=== PATIENT | female | born 1950 | race Caucasian/White ===

== ENCOUNTER 2022-04-27 06:27 | Day surgery (SDC) | payer MEDICARE, OTHER, SELFPAY ==
[2022-04-27 06:48] VITALS: BP 146/76; PULSE 85; RESP 16; TEMP 36.4; O2SAT 100
[2022-04-27] MEDS: Tropicam./Phenyleph. (1/2.5%) 5 ML BTL OD ×3 (06:53→07:02)
--- NOTE | 2022-04-27 07:22 | W.ANESPRE ---
General Info Date of Service Date Performed: 04/27/22 Height: 5 ft 3 in Weight: 50.3 kg Body Mass Index (BMI): 19.6 Surgical Procedure: Operation Date: 04/27/22 07:40 Proposed Procedure Side Surgeon p Cataract Extraction with IOL Implant Right Chema Coleman MD Pre-Op Diagnosis Post-Op Diagnosis CATARACT RIGHT EYE Meds Allergies and Home Medications Allergies Allergy/AdvReac Type Severity Reaction Status Date / Time No Known Allergies Allergy Verified 04/27/22 06:45 Home Medication Medication Instructions Recorded cholecalciferol (vitamin D3) 125 2,000 unit PO DAILY 04/24/22 mcg (5,000 unit) tablet (Vitamin D3) cholestyramine (with sugar) 4 gram 4 pwd PO DIRECTED 04/24/22 oral powder lorazepam 0.5 mg tablet 0.5 mg PO DIRECTED 04/24/22 mecobalamin (vitamin B12) 1,000 1,000 mcg PO DAILY 04/24/22 mcg chewable tablet (B12 Active) multivitamin 1 tab PO DAILY 04/24/22 nicotine (polacrilex) 4 mg buccal 4 mg PO Q2H PRN 04/24/22 lozenge nicotine 7 mg/24 hr daily 7 mg transdermal DAILY 04/24/22 transdermal patch ustekinumab 90 mg/mL subcutaneous 90 mg subcut DIRECTED 04/24/22 syringe (Stelara) Current Visit Medications: Current Medications Generic Name Dose Route Start Last Admin Trade Name Freq PRN Reason Stop Dose Admin Acetaminophen 1,000 mg 04/27/22 06:00 Acetaminophen 500 Mg Tab PO Q4H PRN PRN Miscellaneous Medication 0 ml 04/27/22 06:00 04/27/22 07:02 Tropicam./Phenyleph. 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 Mixed anxiety and depressive disorder Osteoporosis Tobacco user Surgical History Surgical History (Updated 04/27/22 @ 06:45 by Jayy James) H/O colectomy with removal of terminal ileum Hx of cholecystectomy Hx of colonoscopy Hx of tonsillectomy S/P cystourethroscopy with dilation of urethral stricture with indwelling ureteral stent placement S/P laparoscopic surgery Tobacco Smoking/Tobacco Use Status: Current every day Alcohol Alcohol Intake: never Substance Use Substance use: Never Substance use type: does not use Vital Signs and Lab Results Vital Signs Most Recent Vital Signs in EMR: Most Recent Vital Signs Temp Pulse Resp BP Pulse Ox 36.4 C L 85 16 146/76 H 100 04/27/22 06:48 04/27/22 06:48 04/27/22 06:48 04/27/22 06:48 04/27/22 06:48 Lab Results Blood Type / Crossmatch: No Data to Display Complete Blood Count: No Data to Display Complete Metabolic Panel: No Data to Display Liver Function Panel: No Data to Display Coagulation Panel: No Data to Display Cardiac Panel: No Data to Display Arterial Blood Gas: No Data to Display Venous Blood Gas: No Data to Display Pancreas Panel: No Data to Display Thyroid Panel: No Data to Display Infectious Disease: No Data to Display Blood Cultures: No Data to Display Toxicology Panel: No Data to Display Anesthesia Assessment and Plan Anesthesia History Personal History: No History of Anesthesia Complications Family History: No Family History of Anesthesia Complications Exercise Tolerance Exercise Tolerance: Metabolic Equivalents>4 Pertinent Negatives Pertinent Negatives: No Symptoms of GERD Cardiac & Pulmonary Exam Cardiac Exam: Normal S1/S2 Heart Sounds Pulmonary Exam: Clear Bilateral Breath Sounds Implantable Cardiac Device Does patient have a Pacemaker or an ICD?: No Airway Exam Known Difficult Airway: No Mallampati Class: 2 Mouth Opening: Normal (> 3cm) Thyromental Distance: Greater than 3 cm Neck Range of Motion: Full ROM Neck Circumference: Normal Teeth Condition: Normal Dentition ASA Classification ASA Score: ASA 2 Emergency Case?: No NPO Status NPO Status: NPO Clears >2 hours, Solids >8 hours Anesthesia Plan Resuscitation Status: Full Code Anesthesia Technique: MAC Anesthesia Airway Planned: Natural Airway Monitors Used: Standard Monitors
[2022-04-27 07:24] VITALS: BMI 19.6
[2022-04-27] MEDS: Lidocaine 1% Pres-Free 5 ML VIAL (07:37)
[2022-04-27] MEDS: Balanced Salt Soln.-PLUS 500 ML BAG (07:39)
[2022-04-27] MEDS: Povidone-Iodine Ophth 30 ML BTL (07:39)
[2022-04-27] MEDS: Lidocaine 2% Jelly 6 ML SYR (07:39)
[2022-04-27] MEDS: Duovisc Viscoelastic System EACH 1 EACH (07:40)
[2022-04-27] MEDS: Tetracaine 0.5% 4 ML BTL OD (07:42)
[2022-04-27 08:00] VITALS: BP 120/72; PULSE 67; RESP 16; TEMP 37.1; O2SAT 99
--- NOTE | 2022-04-27 08:01 | W.PM.DSUDISC ---
Date of service: 04/27/22 Time of Service: 08:01 Discharge Plan Disposition Patient Disposition: Home Discharge Details Attending Provider: Chema Coleman Primary Care Provider: Nan Shepherd Home Meds and New Rx's Prescriptions: No Action multivitamin Tablet 1 tab PO DAILY lorazepam 0.5 mg Tablet 0.5 mg PO DIRECTED nicotine 7 mg/24 hr Patch 24 Hour 7 mg transdermal DAILY nicotine (polacrilex) 4 mg Lozenge 4 mg PO Q2H PRN cholestyramine (with sugar) 4 gram Powder 4 pwd PO DIRECTED Stelara 90 mg/mL Syringe 90 mg SUBCUT DIRECTED mecobalamin (vitamin B12) [B12 Active] 1,000 mcg Tablet,Chewable 1,000 mcg PO DAILY cholecalciferol (vitamin D3) [Vitamin D3] 125 mcg (5,000 unit) Tablet 2,000 unit PO DAILY Discharge Instructions Stand Alone Forms: Post-op Topical Cataract, Press Ganey (DSU) Discharge Orders Discharge Orders: Discharge Order (Routine); Ordered 04/27/22 Ordered By: Chema Coleman DS: Diagnosis Discharge Diagnosis (1) Nuclear sclerotic cataract of right eye: Status: Resolved
--- NOTE | 2022-04-27 08:02 | ROE_ITS ---
Date of service: 04/27/22 Time of Service: 08:02 Operative Note Operative Note DATE OF PROCEDURE: 04/27/22 PRE-OP DIAGNOSIS: Nuclear cataract, right eye POST-OP DIAGNOSIS: same PROCEDURE: Cataract extraction using phacoemulsification with intraocular lens implant, right eye SURGEON: Chema Coleman ANESTHESIA TYPE: Local By Surgeon and MAC Refer to Anesthesia Record ESTIMATED BLOOD LOSS: 0 PATHOLOGY: none sent COMPLICATIONS: None Patient was transported to: same day Patient's condition: stable Implants: Maikel Clareon [id number] Indications: Progressive decreased vision due to cataract, right eye Procedure Description: CATARACT SURGERY OPERATIVE REPORT PREOPERATIVE DIAGNOSIS: Nuclear cataract, right eye POSTOPERATIVE DIAGNOSIS: Same OPERATION: Cataract extraction using phacoemulsification with posterior chamber intraocular lens implant, right eye. IOL: IOL Ornamental Plasterer Helper/Model: Maikel Clareon [id number] IOL Power: + 21.5 diopters IOL Serial Number: [id number] Optic Diameter: 6.0mm Haptic/Overall Diameter: 13.0mm PHACO INFO: Maikel [employer] Vision System with OZil and Active Fluidics Cumulative Dispersed Energy (CDE): 17.0 seconds SURGEON: Chema Coleman MD, CARMELLA ANESTHESIA: Monitored Anesthesia Care (MAC), with local sub-tenon's anesthetic infiltration COMPLICATIONS: None SPECIMENS: None INDICATIONS FOR PROCEDURE: The patient is a 71-year-old lady with history of diminished visual acuity in her right eye secondary to the development of significant nuclear cataract. She is significantly symptomatic that she desires cataract surgery and attempt to improve and maximize her vision. The option of cataract surgery was offered to the patient and she wished to proceed. PROCEDURE: The correct surgical eye was identified and marked as the right eye and the pupil was dilated in the preoperative area using mydriatics and cycloplegics. The dilated pupil size was 7.0 mm. Oral sedation was administered in the form of an Imprimis MKO Melt (midazolam 3mg/ketamine 25mg/ondansetron 2mg). The patient was brought to the operating room where cardiopulmonary monitoring was instituted and surgical time-out was performed, confirming the correct operative eye and IOL power. Topical anesthesia was administered and ophthalmic povidone-iodine 5% was instilled into the conjunctival fornices. Lidocaine gel was applied to the cornea and the ceasar-ocular area was prepped with Betadine 10% solution and draped in the usual sterile fashion for intraocular surgery, including an aperture drape. A Tegaderm transparent film dressing was cut in half and used to cover the lashes and lid margins. Care was taken to sequester the lashes and lid margins under the Tegaderm dressing. A lid speculum was placed between the lids of the operative eye and the Feli-Michael operating microscope was maneuvered into position. Edith scissors were then used to make a conjunctival buttonhole approximately 6mm posterior to the limbus in the inferonasal quadrant. Blunt dissection was carried out to expose bare sclera, and a blunt-tipped sub-tenon?s anesthesia cannula was introduced and passed posteriorly along the globe where non- preserved plain lidocaine was injected into posterior sub-Tenon?s space. A sideport knife was used to make a paracentesis port inferiortemporally. Intraocular phenylephrine/lidocaine was injected into the anterior chamber. The anterior chamber was then filled with viscoelastic. A keratome knife was used to construct a two--plane near-clear corneal tunnel extending 2.0mm into clear cornea in the superiortemporal position.. A flap was raised on the anterior capsule and capsulorhexis forceps were used to complete a continuous curvilinear capsulorhexis of 5.5 mm. Balanced salt solution was then used to perform cortical cleaving hydrodissection and nuclear hydrodelineation until the lens could be freely rotated within the capsular bag. The lens nucleus was then disassembled and removed within the capsular bag and iris plane using phacoemulsification. Residual cortical material was removed using the I/A handpiece. The posterior capsule was carefully polished to remove as much residual lens epithelial cells as safely possible. The capsular bag was then inflated and the anterior chamber deepened with viscoelastic. The lens implant described above was inserted into the capsular bag using the Maikel Autonome Injector. A Kuglen hook was used to dial the IOL into position. Residual viscoelastic was then removed first from posterior to the IOL, then from the anterior chamber using the I/A handpiece. The lens implant was noted to center nicely within the capsular bag. The incisions were stromally hydrated, and the anterior chamber was reformed using BSS. Then 0.5cc of moxifloxacin 1.0mg/ml were injected into the capsular bag and anterior chamber. The incisions were checked with a Weck spear and found to be secure. Several drops of ophthalmic povidone-iodine 5% were then applied to the eye followed by two drops of Imprimis combination prednisolone/moxifloxacin/nepafenac solution. The drapes were removed and a clear plastic protective eye shield was placed over the eye. The patient was then returned to Same Day Surgery in stable condition.
--- NOTE | 2022-04-27 08:13 | W.ANESPOSTOP ---
Postoperative Evaluation Date, Time and Location Date Performed: 04/27/22 Time Performed: 08:00 Patient Location: Day Surgery Unit Vital Signs Most Recent Imported Vital Signs: Most Recent Vital Signs Temp Pulse Resp BP Pulse Ox 37.1 C 67 16 120/72 99 04/27/22 08:00 04/27/22 08:00 04/27/22 08:00 04/27/22 08:00 04/27/22 08:00 Pain Score Most Recent Pain Score: Most Recent Pain Score Pain Level 0 04/27/22 08:00 Assessment Mental Status: Awake (Alert & Oriented to Patient Baseline) Airway and Respiratory Function: Patent airway with normal (patient baseline) respiratory exam Cardiovascular Function: Hemodynamically Stable Hydration Status: Adequately Hydrated Nausea & Vomiting: No Nausea or Vomiting Pain: Pt. Denies Any Pain Peripheral Nerve Block: Patient did not receive a nerve block
[2022-04-27 08:25] VITALS: BP 123/75; PULSE 74; RESP 18; TEMP 37; O2SAT 100
== END 2022-04-27 08:29 | disposition home or self-care (01) ==
LOC: SUR 06:27
PROVIDERS: PCP Physician Assistant Medical; Visit Provider Ophthalmology
PROC: (CPT 66984; principal; 2022-04-27 07:30)
DX: H25.11 Age-related nuclear cataract, right eye (principal)
CPT/HCPCS: 66984; V2632

== ENCOUNTER 2022-05-04 09:29 | Day surgery (SDC) | payer MEDICARE, OTHER, SELFPAY ==
[2022-05-04 10:02] VITALS: BP 131/66; PULSE 74; RESP 16; TEMP 36.6; O2SAT 100
[2022-05-04] MEDS: Tropicam./Phenyleph. (1/2.5%) 5 ML BTL OS ×3 (10:14→10:23)
--- NOTE | 2022-05-04 11:05 | W.ANESPRE ---
General Info Date of Service Date Performed: 05/04/22 Height: 5 ft 3 in Weight: 111.6 kg Body Mass Index (BMI): 43.5 Surgical Procedure: Operation Date: 05/04/22 11:25 Proposed Procedure Side Surgeon p Cataract Extraction with IOL Implant Left Chema Coleman MD Meds Allergies and Home Medications Allergies Allergy/AdvReac Type Severity Reaction Status Date / Time No Known Allergies Allergy Verified 05/04/22 10:00 Home Medication Medication Instructions Recorded cholecalciferol (vitamin D3) 125 2,000 unit PO DAILY 04/24/22 mcg (5,000 unit) tablet (Vitamin D3) cholestyramine (with sugar) 4 gram 4 pwd PO DIRECTED 04/24/22 oral powder lorazepam 0.5 mg tablet 0.5 mg PO DIRECTED 04/24/22 mecobalamin (vitamin B12) 1,000 1,000 mcg PO DAILY 04/24/22 mcg chewable tablet (B12 Active) multivitamin 1 tab PO DAILY 04/24/22 nicotine (polacrilex) 4 mg buccal 4 mg PO Q2H PRN 04/24/22 lozenge nicotine 7 mg/24 hr daily 7 mg transdermal DAILY 04/24/22 transdermal patch ustekinumab 90 mg/mL subcutaneous 90 mg subcut DIRECTED 04/24/22 syringe (Stelara) Current Visit Medications: Current Medications Generic Name Dose Route Start Last Admin Trade Name Freq PRN Reason Stop Dose Admin Acetaminophen 1,000 mg 05/04/22 06:00 Acetaminophen 500 Mg Tab PO Q4H PRN PRN Miscellaneous Medication 0 ml 05/04/22 06:00 05/04/22 10:23 Tropicam./Phenyleph. (1/2.5%) 5 Ml Btl OS 1 drp DIRECTED [facility] Administration Miscellaneous Medication 0 ml 05/04/22 06:00 Prednisolone 1%, Moxifloxacin 0.5%, Nepafenac 0.1% 5ml Btl OS DIRECTED [facility] Tetracaine HCl 0 ml 05/04/22 06:00 Tetracaine 0.5% 4 Ml Btl OS DIRECTED [facility] PFSH Active Problems Active Problems: Problem Status Onset Code Nuclear sclerotic cataract of right eye H25.11 Medical History Medical History Abnormal weight loss Crohn's disease Crohn's disease involving terminal ileum Crohns disease of small intestine Epigastric abdominal pain Essential thrombocythemia Gastric ulcer HLD (hyperlipidemia) detention (current) use of systemic steroids Mixed anxiety and depressive disorder Osteoporosis Tobacco user Surgical History Surgical History H/O colectomy with removal of terminal ileum Hx of cholecystectomy Hx of colonoscopy Hx of tonsillectomy S/P cystourethroscopy with dilation of urethral stricture with indwelling ureteral stent placement S/P laparoscopic surgery Tobacco Smoking/Tobacco Use Status: Current every day Alcohol Alcohol Intake: never Substance Use Substance use: Never Substance use type: does not use Vital Signs and Lab Results Vital Signs Most Recent Vital Signs in EMR: Most Recent Vital Signs Temp Pulse Resp BP Pulse Ox 36.6 C 74 16 131/66 100 05/04/22 10:02 05/04/22 10:02 05/04/22 10:02 05/04/22 10:02 05/04/22 10:02 Lab Results Blood Type / Crossmatch: No Data to Display Complete Blood Count: No Data to Display Complete Metabolic Panel: No Data to Display Liver Function Panel: No Data to Display Coagulation Panel: No Data to Display Cardiac Panel: No Data to Display Arterial Blood Gas: No Data to Display Venous Blood Gas: No Data to Display Pancreas Panel: No Data to Display Thyroid Panel: No Data to Display Infectious Disease: No Data to Display Blood Cultures: No Data to Display Toxicology Panel: No Data to Display Anesthesia Assessment and Plan Anesthesia History Personal History: No History of Anesthesia Complications Family History: No Family History of Anesthesia Complications Exercise Tolerance Exercise Tolerance: Metabolic Equivalents>4 Pertinent Negatives Pertinent Negatives: No Symptoms of GERD, No Major Cardiovascular Symptoms or Complaints, No Major Pulmonary Symptoms or Complaints and No History of CVA/TIA Cardiac & Pulmonary Exam Cardiac Exam: Normal S1/S2 Heart Sounds Pulmonary Exam: Clear Bilateral Breath Sounds Implantable Cardiac Device Does patient have a Pacemaker or an ICD?: No Airway Exam Known Difficult Airway: No Mallampati Class: 2 Mouth Opening: Narrow (< 3cm) Thyromental Distance: Greater than 3 cm Neck Range of Motion: Full ROM Neck Circumference: Normal Teeth Condition: Normal Dentition ASA Classification ASA Score: ASA 2 Emergency Case?: No NPO Status NPO Status: NPO Clears >2 hours, Solids >8 hours Anesthesia Plan Resuscitation Status: Full Code Anesthesia Technique: MAC Anesthesia Airway Planned: Natural Airway Monitors Used: Standard Monitors
[2022-05-04 11:06] VITALS: BMI 43.5
[2022-05-04] MEDS: Balanced Salt Soln.-PLUS 500 ML BAG (11:42)
[2022-05-04] MEDS: Tetracaine 0.5% 4 ML BTL OS (11:42)
[2022-05-04] MEDS: Lidocaine 2% Jelly 6 ML SYR (11:43)
[2022-05-04] MEDS: Duovisc Viscoelastic System EACH 1 EACH (11:43)
[2022-05-04] MEDS: Povidone-Iodine Ophth 30 ML BTL (11:45)
[2022-05-04 12:01] VITALS: BP 139/65; PULSE 65; RESP 16; TEMP 36.7; O2SAT 100
--- NOTE | 2022-05-04 12:02 | W.PM.DSUDISC ---
Date of service: 05/04/22 Time of Service: 12:02 Discharge Plan Disposition Patient Disposition: Home Discharge Details Attending Provider: Chema Coleman Primary Care Provider: Nan Shepherd Home Meds and New Rx's Prescriptions: No Action multivitamin Tablet 1 tab PO DAILY lorazepam 0.5 mg Tablet 0.5 mg PO DIRECTED nicotine 7 mg/24 hr Patch 24 Hour 7 mg transdermal DAILY nicotine (polacrilex) 4 mg Lozenge 4 mg PO Q2H PRN cholestyramine (with sugar) 4 gram Powder 4 pwd PO DIRECTED Stelara 90 mg/mL Syringe 90 mg SUBCUT DIRECTED mecobalamin (vitamin B12) [B12 Active] 1,000 mcg Tablet,Chewable 1,000 mcg PO DAILY cholecalciferol (vitamin D3) [Vitamin D3] 125 mcg (5,000 unit) Tablet 2,000 unit PO DAILY Discharge Instructions Stand Alone Forms: Post-op Topical Cataract, Press Ganey (DSU) Discharge Orders Discharge Orders: Discharge Order (Routine); Ordered 05/04/22 Ordered By: Chema Coleman DS: Diagnosis Discharge Diagnosis (1) Nuclear sclerotic cataract of left eye: Status: Resolved
--- NOTE | 2022-05-04 12:03 | ROE_ITS ---
Date of service: 05/04/22 Time of Service: 12:03 Operative Note Operative Note DATE OF PROCEDURE: 05/04/22 PRE-OP DIAGNOSIS: Nuclear cataract, left eye POST-OP DIAGNOSIS: same PROCEDURE: Cataract extraction using phacoemulsification with intraocular lens implant, left eye SURGEON: Chema Coleman ANESTHESIA TYPE: Local By Surgeon and MAC Refer to Anesthesia Record PATHOLOGY: none sent COMPLICATIONS: None Patient was transported to: same day Patient's condition: stable Implants: Maikel Clareon [id number] Indications: Progressive decreased vision due to cataract, left eye Procedure Description: CATARACT SURGERY OPERATIVE REPORT PREOPERATIVE DIAGNOSIS: Nuclear cataract, left eye POSTOPERATIVE DIAGNOSIS: Same OPERATION: Cataract extraction using phacoemulsification with posterior chamber intraocular lens implant, left eye. IOL: IOL Dust Collector/Model: Maikel Clareon [id number] IOL Power: + 22.0 diopters IOL Serial Number: [id number] Optic Diameter: 6.0mm Haptic/Overall Diameter: 13.0mm PHACO INFO: Maikel [employer]urion Vision System with OZil and Active Fluidics Cumulative Dispersed Energy (CDE): 12.95 seconds SURGEON: Chema Coleman MD, CARMELLA ANESTHESIA: Monitored Anesthesia Care (MAC), with local sub-tenon's anesthetic infiltration COMPLICATIONS: None SPECIMENS: None INDICATIONS FOR PROCEDURE: The patient is a 71-year-old lady with history of diminished visual acuity in both eyes secondary to the development of bilateral nuclear cataract. She has already undergone cataract surgery in the right eye and is doing well postoperatively. She now presents for cataract surgery in the left eye PROCEDURE: The correct surgical eye was identified and marked as the left eye and the pupil was dilated in the preoperative area using mydriatics and cycloplegics. The dilated pupil size was 7.0 mm. The patient elected to proceed without oral sedation. The patient was brought to the operating room where cardiopulmonary monitoring was instituted and surgical time-out was performed, confirming the correct operative eye and IOL power. Topical anesthesia was administered and ophthalmic povidone-iodine 5% was instilled into the conjunctival fornices. Lidocaine gel was applied to the cornea and the ceasar-ocular area was prepped with Betadine 10% solution and draped in the usual sterile fashion for intraocular surgery, including an aperture drape. A Tegaderm transparent film dressing was cut in half and used to cover the lashes and lid margins. Care was taken to sequester the lashes and lid margins under the Tegaderm dressing. A lid speculum was placed between the lids of the operative eye and the Maikel [employer] operating microscope was maneuvered into position. Edith scissors were then used to make a conjunctival buttonhole approximately 6mm posterior to the limbus in the inferonasal quadrant. Blunt dissection was carried out to expose bare sclera, and a blunt-tipped sub-tenon?s anesthesia cannula was introduced and passed posteriorly along the globe where non- preserved plain lidocaine was injected into posterior sub-Tenon?s space. A sideport knife was used to make a paracentesis port superior/superiortemporally. Intraocular phenylephrine/lidocaine was injected into the anterior chamber. The anterior chamber was then filled with viscoelastic. A keratome knife was used construct a two-plane near-clear corneal tunnel extending 2.0mm into clear cornea in the temporal position. . A flap was raised on the anterior capsule and capsulorhexis forceps were used to complete a continuous curvilinear capsulorhexis of 5.0 mm. Balanced salt solution was then used to perform cortical cleaving hydrodissection and nuclear hydrodelineation until the lens could be freely rotated within the capsular bag. The lens nucleus was then disassembled and removed within the capsular bag and iris plane using phacoemulsification. Residual cortical material was removed using the 45-degree angled silicone I/A tip with 0.3mm port. The posterior capsule was carefully polished to remove as much residual lens epithelial cells as safely possible. The capsular bag was then inflated and the anterior chamber deepened with viscoelastic. The lens implant described above was inserted into the capsular bag using the Maikel Autonome Injector. A Kuglen hook was used to dial the IOL into position. Residual viscoelastic was then removed first from posterior to the IOL, then from the anterior chamber using the I/A handpiece. The lens implant was noted to center nicely within the capsular bag. The incisions were stromally hydrated, and the anterior chamber was reformed using BSS. Then 0.5cc of moxifloxacin 1.0mg/ml were injected into the capsular bag and anterior chamber. The incisions were checked with a Weck spear and found to be secure. Several drops of ophthalmic povidone-iodine 5% were then applied to the eye followed by two drops of Imprimis combination prednisolone/moxifloxacin/nepafenac solution. The drapes were removed and a clear plastic protective eye shield was placed over the eye. The patient was then returned to Same Day Surgery in stable condition.
--- NOTE | 2022-05-04 12:53 | W.ANESPOSTOP ---
Postoperative Evaluation Date, Time and Location Date Performed: 05/04/22 Time Performed: 12:01 Patient Location: Day Surgery Unit Vital Signs Most Recent Imported Vital Signs: Most Recent Vital Signs Temp Pulse Resp BP Pulse Ox 36.7 C 65 16 139/65 100 05/04/22 12:01 05/04/22 12:01 05/04/22 12:01 05/04/22 12:01 05/04/22 12:01 Pain Score Most Recent Pain Score: Most Recent Pain Score Pain Level 0 05/04/22 12:01 Assessment Mental Status: Awake (Alert & Oriented to Patient Baseline) Airway and Respiratory Function: Patent airway with normal (patient baseline) respiratory exam Cardiovascular Function: Hemodynamically Stable Hydration Status: Adequately Hydrated Nausea & Vomiting: No Nausea or Vomiting Pain: Pt. Denies Any Pain Peripheral Nerve Block: Other (Local by Dr. Coleman)
== END 2022-05-04 12:19 | disposition home or self-care (01) ==
LOC: SUR 09:30
PROVIDERS: PCP Physician Assistant Medical; Visit Provider Ophthalmology
PROC: (CPT 66984; principal; 2022-05-04 11:15)
DX: H25.12 Age-related nuclear cataract, left eye (principal)
CPT/HCPCS: 66984; V2632